=== PATIENT | male | born 1980 | race Caucasian/White ===

== ENCOUNTER 2017-11-19 23:03 | Emergency (ER) | payer SELFPAY ==
[~2017-11-19] VITALS: Ht 188 cm; Wt 118.2 kg
[2017-11-19 23:07] VITALS: BP 138/77; TEMP 97
[2017-11-19] MEDS ORDERED: LITHIUM 30300 MG/CAP PO (23:23)
[2017-11-19] MEDS ORDERED: PROZAC 10MG10 MG PO (23:24)
[2017-11-19] MEDS ORDERED: NEURONTIN300 MG/CAP PO (23:25)
[2017-11-19] MEDS ORDERED: ATARAX 10MG10 MG/TAB PO (23:25)
[2017-11-19] MEDS ORDERED: PERIACTIN 4MG TA4 MG PO (23:26)
[2017-11-19] MEDS ORDERED: NORVASC 5MG5 MG/TAB PO (23:38)
[2017-11-19] MEDS ORDERED: ALTACE 10MG TAB10 MG PO (23:38)
[2017-11-19] MEDS ORDERED: AMBIEN 10MG10 MG PO (23:39)
[2017-11-19] MEDS ORDERED: MAGNESIUM CITR100 MG PO (23:40)
[2017-11-20 01:50] VITALS: PULSE 68
== END 2017-11-20 01:50 | disposition home or self-care (01) ==
LOC: COL.ER 23:03
DX: S00.93XA Contusion of unspecified part of head, initial encounter (principal); I10 Essential (primary) hypertension; G47.00 Insomnia, unspecified; W22.8XXA Striking against or struck by other objects, initial encounter